=== PATIENT | male | born 1950 | race Caucasian/White ===

== ENCOUNTER → 2017-04-09 | Day surgery (SDC) | payer MEDICARE, BC ==
[~2017-04-09] MED LIST: ABIL15TA2 PO; ALBU8I INH; ASPI81TA82 PO; CARV12.5 PO; CYCL-36 PO; CYMB60CA PO; FINA5TAB77 PO; ISOS60 PO; LACTATED RINGER'S 1000 ML INJ 1,000 ML ONE; LEVO.2 PO; MAXZ25 PO; METH5SOL3 PO; PROPOFOL 100 MG/10 ML INJ IV ONE; PROPOFOL 1000 MG/100 ML BTL IV ONE; RAMI10CA PO; REST30CA PO; SYMB160A INH; VIAG100T PO; ceFAZolin 2 GM PREMIX 50 ML ONE
--- NOTE | 2017-04-09 09:17 | GIPROC ---
[facility] [address] [facility], [address] COLONOSCOPY PROCEDURE REPORT EXAM DATE: 04/09/2017 PATIENT NAME: Tam Carranza MR #: [id number] BIRTHDATE: 1950 ENDOSCOPIST: Ayde Kyle MD ORDER #: [id number] FIELD MARKETER: Beti Loera RN STATUS: outpatient INDICATIONS: The patient is a 66 yr old male here for a colonoscopy due to history of polyps, family history of colon cancer PROCEDURE PERFORMED: Colonoscopy, diagnostic Colonoscopy with biopsy MEDICATIONS: None and Per Anesthesia. PREP QUALITY: good PREP TYPE:Other: ESTIMATED BLOOD LOSS: None CONSENT: The patient understands the risks and benefits of the procedure and understands that these risks include, but are not limited to: sedation, allergic reaction, infection, perforation and/or bleeding. Alternative means of evaluation and treatment include, among others: physical exam, x-rays, and/or surgical intervention. The patient elects to proceed with this endoscopic procedure. medical equipment was checked for proper function. Hand hygiene and appropriate measures for infection prevention was taken. After the risks, benefits and alternatives of the procedure were thoroughly explained, Informed consent was verified, confirmed and timeout was successfully executed by the treatment team. A digital exam revealed external hemorrhoids The EC-3490Li ([id number]) endoscope was introduced through the anus and advanced to the cecum, which was identified by both the appendix and ileocecal valve. The instrument was then slowly withdrawn as the colon was fully examined. COLON FINDINGS: Diverticulosis sigmoid,descending polyp diminutive rectum-cold biopsy with complete removal. Retroflexed views revealed internal hemorrhoids and Retroflexed views revealed small internal hemorrhoids The scope was then completely withdrawn from the patient and the procedure terminated. PROCEDURE WITHDRAWAL TIME:6minutes ADVERSE EVENTS: There were no complications. IMPRESSIONS: 1. Diverticulosis sigmoid,descending polyp diminutive rectum-cold biopsy with complete removal 2. Retroflexed views revealed internal hemorrhoids 3. Retroflexed views revealed small internal hemorrhoids 4. Revealed external hemorrhoids RECOMMENDATIONS: 1. Await biopsy results. Biopsy results will not be ready for 7-10 days. If you don't hear from us in two weeks, call our office for results. 2. Benefiber 2 tsp daily 3. High fiber diet 4. Probiotics from any [employer] or health food store 5. Yearly rectal exams RECALL: Colonoscopy, pending biopsy results Ayde Kyle MD eSigned: Ayde Kyle MD 04/09/2017 9:17 AM cc: Eun Lester [facility] Marlene and Tong Borrero M.D.
--- NOTE | 2017-04-09 10:44 | GIPROC ---
[facility] [address] [facility], [address] EGD PROCEDURE REPORT EXAM DATE: 04/09/2017 PATIENT NAME: Tam Carranza MR #: [id number] BIRTHDATE: 1950 ATTENDING: Ayde Kyle MD ORDER #: [id number] SENIOR ACCOUNTING ANALYST: Beti Loera RN STATUS: outpatient INDICATIONS: The patient is a 66 yr old male here for an EGD due to reflux PROCEDURE PERFORMED: EGD w/ biopsy EGD w/ Joyner capsule placement MEDICATIONS: None and Per Anesthesia. TOPICAL ANESTHETIC: none CONSENT: The patient understands the risks and benefits of the procedure and understands that these risks include, but are not limited to: sedation, allergic reaction, infection, perforation and/or bleeding. Alternative means of evaluation and treatment include, among others: physical exam, x-rays, and/or surgical intervention. The patient elects to proceed with this endoscopic procedure. medical equipment was checked for proper function. Hand hygiene and appropriate measures for infection prevention was taken. After the risks, benefits and alternatives of the procedure were thoroughly explained, Informed consent was verified, confirmed and timeout was successfully executed by the treatment team. The patient was anesthetized with topical anesthesia and the EC-3490Li ([id number]), EG-2990i ([id number]), and EG-2990i ([id number]) endoscope was introduced through the mouth and advanced to the second portion of the duodenum. Retroflexed views revealed a hiatal hernia The gastroscope was then slowly withdrawn and removed. Duodenum normal-biopsy gastritis antrum-biopsy esophagitis distal esophagus-biopsy JOYNER probe applied under ditect visualisation first JOYNER probe did not deploy, second fell into stomach, colonoscopy was done, patietn send to recovery until third JOYNER probe in, was brought back to gi lab, sedated again scope was introduced in esophagus , stomach- second JOYNER probe in stomach will pass on its own A third JOYNER probe was placed under direct visualisation in esophagus at 32 cm , placement was documnted edoscopically. ADVERSE EVENTS: There were no complications. IMPRESSIONS: 1. Duodenum normal-biopsy gastritis antrum-biopsy esophagitis distal esophagus-biopsy JOYNER probe applied under ditect visualisation first JOYNER probe did not deploy, second fell into stomach, colonoscopy was done, patietn send to recovery until third JOYNER probe in, was brought back to gi lab, sedated again scope was introduced in esophagus , stomach- second JOYNER probe in stomach will pass on its own A third JOYNER probe was placed under direct visualisation in esophagus at 32 cm , placement was documnted edoscopically 2. Retroflexed views revealed a hiatal hernia RECOMMENDATIONS: 1. Await biopsy results. Biopsy results will not be ready for 7-10 days. If you don't hear from us in two weeks, call our office for biopsy results. 2. Anti-reflux regimen 3. Follow up for Joyner chip results 4. Avoid NSAIDS PATIENT CONDITION: stable DISPOSITION: Home REPEAT EXAM: EGD pending biopsy results Ayde Kyle MD eSigned: Ayde Kyle MD 04/09/2017 10:44 AM cc: Tong Borrero M.D. PATIENT NAME: Tam Carranza MR#: [id number]
== END | disposition home or self-care (01) ==
LOC: ESDC 06:51
PROVIDERS: ATTEND Internal Medicine Gastroenterology
DX: Z12.11 Encounter for screening for malignant neoplasm of colon (principal); Z86.010 Personal history of colon polyps; Z80.0 Family history of malignant neoplasm of digestive organs; K57.90 Diverticulosis of intestine, part unspecified, without perforation or abscess without bleeding; K62.1 Rectal polyp; K64.8 Other hemorrhoids; K21.9 Gastro-esophageal reflux disease without esophagitis; K44.9 Diaphragmatic hernia without obstruction or gangrene; K29.70 Gastritis, unspecified, without bleeding; K20.9 Esophagitis, unspecified
CPT/HCPCS: 00740; 00810; 43239; 45380; 88305; 88312; J0690; J3010; J7120

== ENCOUNTER → 2017-06-10 | Outpatient (CLI) | payer MEDICARE, BC ==
[~2017-06-10] MED LIST changes: -LACTATED RINGER'S 1000 ML INJ 1,000 ML ONE; -PROPOFOL 100 MG/10 ML INJ IV ONE; -PROPOFOL 1000 MG/100 ML BTL IV ONE; -ceFAZolin 2 GM PREMIX 50 ML ONE
== END ==
LOC: CLAB 14:31
PROVIDERS: ATTEND Internal Medicine Interventional Cardiology
DX: R07.9 Chest pain, unspecified (principal)
CPT/HCPCS: 36415; 84484